=== PATIENT | female | born 1965 | race Caucasian/White ===

== ENCOUNTER → 2018-04-04 12:45 | Outpatient (CLI) | payer BC, SELFPAY ==
--- NOTE | 2018-04-04 12:52 | VDLE_ITS ---
Reason For Study: EDEMA RIGHT LEFT CFV is compressible, spontaneous, phasic, CFV is compressible, spontaneous, phasic, competent and demonstrates normal competent, and demonstrates normal augmentation. augmentation. FV is compressible, spontaneous, phasic, FV is compressible, spontaneous, phasic, competent and demonstrates normal competent and demonstrates normal augmentation. augmentation. POP V is compressible, spontaneous, phasic, POP V is compressible, spontaneous, phasic, competent and demonstrates normal competent and demonstrates normal augmentation. augmentation. T/P Trunk is compressible. T/P Trunk is compressible. PTV is compressible. PTV is compressible. RT PerV is compressible. LT PerV is compressible. SFJ is competent. SFJ is competent. GSV is competent. GSV is competent. SSV is competent. SSV is competent. Procedure NON vascular structure noted in the pop Exam performed in department. fossa space measuring 5.59 cm x 2.75 cm. The exam was diagnostic. A preliminary report was called and/or faxed to Natalia Mckeon UPTWISTER TENDER @ [phone] @ 2:15 pm. IMAGE #[id number] is LT SSV. Interpretation Summary Deep veins of the lower extremities are bilaterally patent and compressible segmentally. There is no evidence of deep vein thrombosis on either side. Valvular competence appears intact within the proximal deep venous systems bilaterally. The greater saphenous veins appear bilaterally patent and compressible segmentally. Sapheno-femoral junctions are bilaterally competent . Valvular competence appears to be intact segmentally within the greater saphenous veins bilaterally. Small saphenous veins are patent and competent bilaterally. A non-vascular, hypoechoic structure is noted in the left popliteal space, measuring 5.59 cm x 2.75 cm. This probably represents a popliteal cyst. Clinical correlation is advised. Ordering Physician: NATALIA MCKEON Referring Physician: Natalia Mckeon Performed By: Kimmie Perez, RDCS, RVT
--- NOTE | 2018-04-05 13:48 | LEAS_ITS ---
Arterial Study - Arterial Study Arterial Study: This is a 53 year-old female with suspected peripheral arterial occlusive disease. She is brought to the noninvasive vascular laboratory at this time for the purpose of bilateral noninvasive lower extremity arterial assessment. Doppler signal assessment was used to evaluate the pulses at ankle level bilaterally. The posterior tibial and dorsalis pedis pulses were triphasic bilaterally. Segmental limb pressures were obtained at ankle level bilaterally. The right ankle pressure, as determined by posterior tibial pulse, was measured at 196 mmHg. The right ankle pressure, as determined by dorsalis pedis pulse, was measured at 189 mmHg. The left ankle pressure, as determined by posterior tibial pulse, was measured at 196 mmHg. The left ankle pressure, as determined by dorsalis pedis pulse, was measured at 177 mmHg. Pulse-volume recordings were obtained bilaterally and segmentally. Waveform amplitudes appeared to be satisfactory at all levels bilaterally, including low thigh, calf, ankle, and digital levels. Resting ankle-brachial indices were calculated bilaterally. The resting right ankle-brachial index was calculated to be 1.26. The resting left ankle- brachial index was calculated to be 1.26. Impression: Based upon the findings of this resting noninvasive lower extremity arterial study, there is no evidence of significant atherosclerotic peripheral arterial occlusive disease in the lower extremities bilaterally. Triphasic waveforms were noted at ankle level bilaterally. Resting ankle-brachial indices were bilaterally normal. In summary, this represents a normal resting noninvasive lower extremity arterial study bilaterally.
== END ==
PROVIDERS: Family Provider Nurse Practitioner; PCP Nurse Practitioner; Visit Provider Nurse Practitioner
DX: R60.0 Localized edema (principal); I73.9 Peripheral vascular disease, unspecified; I83.90 Asymptomatic varicose veins of unspecified lower extremity
CPT/HCPCS: 93923; 93970

== ENCOUNTER → 2018-09-10 20:35 | Outpatient (CLI) | payer BC, SELFPAY ==
[2018-09-10 19:28] VITALS: BMI 33.1
[2018-09-10 20:57] LABS: Absolute Lymphocyte Count 3.79 X10^3/ul (0.83-4.51); Absolute Neutrophil Count 3.3 X10^3/uL (2.0-7.7); Basophil# 0.04 X10^3/uL; Basophil% 0.5 % (0-1); Eosinophil# 0.53 X10^3/uL; Eosinophils% 6.3 % (0-5); Hematocrit 41.5 % (37-47); Lymphocyte # 3.79 X10^3/ul (4.0); Lymphocyte % 44.9 % (19-41); Mean Corp Hgb Conc 33.7 g/gl (32-36); Mean Corpuscular Hgb 31.1 pg (27.0-32.0); Mean Corpuscular Volume 92.2 fL (81-99); Mean Platelet Vol. 10.4 fl (6.2-12.0); Monocyte% 9.5 % (0-10); Neutrophil # 3.28 X10^3/uL (2.7-7.7); Neutrophil % 38.7 % (47-70); POSITIVE COUNT NO; POSITIVE DIFFERENTIAL NO; POSITIVE MORPHOLOGY NO; Platelet Count 240 K/mm3 (150-450); RBC Distribution Width CV 12.6 % (11.6-14.6); RBC Distribution Width SD 41.9 fl (35.1-43.9); White Blood Count 8.5 K/mm3 (4.4-11.0)
[2018-09-10 20:59] LABS: ALB/GLOB Ratio 0.9 RATIO (0.9-2.4); AST(SGOT) 36 U/L (15-37); Alanine Aminotransfer ALT/SGPT 55 U/L (13-56); Albumin, Serum 3.5 g/dL (3.2-5.0); Alkaline Phosphatase 88 U/L (45-117); Anion Gap 6 (5-15); BUN 18 mg/dL (7-18); BUN/Creat Ratio 26.9 RATIO (10-20); Calcium,Total 8.8 mg/dL (8.5-10.1); Chloride 106 mmol/L (98-107); Cholesterol 139 mg/dL (200); Creatinine, Serum 0.67 mg/dL (0.55-1.02); EST Glomerular Filtration Rate 98 mL/min (>60); Est Glom Filt Rate - Afr Amer 119 mL/min (>60); Globulin 4.1 g/dL (2.2-4.2); Glucose 102 mg/dL (74-106); High Density Lipoprotein 45 mg/dL; Protein, Total 7.6 g/dL (6.4-8.2); Sodium Level 140 mmol/L (136-145); Triglycerides 78 mg/dL; Very Low Density Lipoprotein 16 mg/dL (5-40)
== END ==
PROVIDERS: Family Provider Nurse Practitioner; PCP Nurse Practitioner; Referring Provider Nurse Practitioner; Visit Provider Nurse Practitioner
DX: Z00.00 Encounter for general adult medical examination without abnormal findings (principal)
CPT/HCPCS: 80053; 80061; 85025

== ENCOUNTER → 2019-08-08 00:18 | Outpatient (CLI) | payer BC, SELFPAY ==
[2019-08-07 21:16] VITALS: BMI 35.6
[2019-08-08 00:33] LABS: Absolute Lymphocyte Count 4.32 X10^3/uL (0.83-4.51); Absolute Neutrophil Count 4.2 X10^3/uL (2.0-7.7); Basophil# 0.09 X10^3/uL; Basophil% 0.9 % (0-1); Eosinophil# 0.44 X10^3/uL; Eosinophils% 4.5 % (0-5); Hematocrit 40.7 % (37-47); Hemoglobin 13.7 g/dL (12.0-15.0); Lymphocyte # 4.32 X10^3/ul (4.0); Lymphocyte % 44.3 % (19-41); Mean Corp Hgb Conc 33.7 g/dL (32-36); Mean Corpuscular Volume 95.1 fL (81-99); Mean Platelet Vol. 10.7 fl (6.2-12.0); Monocyte# 0.69 X10^3/uL; Monocyte% 7.1 % (0-10); NRBC Flagged by Analyzer 0 % (0-5); Neutrophil # 4.18 X10^3/uL (2.7-7.7); Neutrophil % 42.9 % (47-70); Platelet Count 252 K/mm3 (150-450); RBC Distribution Width CV 12.6 % (11.6-14.6); RBC Distribution Width SD 43.8 fl (35.1-43.9); Red Blood Count 4.28 M/mm3 (4.2-5.4); White Blood Count 9.8 K/mm3 (4.4-11.0)
[2019-08-08 00:50] LABS: AST(SGOT) 62 U/L (15-37); Alanine Aminotransfer ALT/SGPT 74 U/L (13-56); Albumin, Serum 3.8 g/dL (3.2-5.0); Alkaline Phosphatase 88 U/L (45-117); Anion Gap 6 (5-15); BUN 11 mg/dL (7-18); BUN/Creat Ratio 16.2 RATIO (10-20); Chloride 106 mmol/L (98-107); Cholesterol 173 mg/dL (200); Creatinine, Serum 0.68 mg/dL (0.55-1.02); EST Glomerular Filtration Rate 96 mL/min (>60); Est Glom Filt Rate - Afr Amer 116 mL/min (>60); Globulin 3.9 g/dL (2.2-4.2); Glucose 97 mg/dL (74-106); High Density Lipoprotein 42 mg/dL; Potassium 4.3 mmol/L (3.5-5.1); Protein, Total 7.7 g/dL (6.4-8.2); Sodium Level 140 mmol/L (136-145); Triglycerides 97 mg/dL; Very Low Density Lipoprotein 19 mg/dL (5-40)
== END ==
LOC: OLS.AHF 00:19 → LABSPEC 10:43
PROVIDERS: Family Provider Nurse Practitioner; PCP Nurse Practitioner; Referring Provider Nurse Practitioner; Visit Provider Nurse Practitioner
DX: Z00.00 Encounter for general adult medical examination without abnormal findings (principal)
CPT/HCPCS: 80053; 80061; 85025

== ENCOUNTER → 2020-01-07 10:43 | Outpatient (CLI) | payer BC, SELFPAY ==
[2019-11-16 19:33] VITALS: BMI 35.6
--- NOTE | 2020-01-07 10:45 | VDLE_ITS ---
Reason For Study: PAIN RIGHT CFV is compressible, spontaneous, phasic, competent and demonstrates normal augmentation. FV is compressible, spontaneous, phasic, competent and demonstrates normal augmentation. POP V is compressible, spontaneous, phasic, competent and demonstrates normal augmentation. T/P Trunk is compressible. PTV is compressible. RT PerV is compressible. GSV is absent. Procedure Exam performed in department. The exam was diagnostic. A preliminary report was called and/or faxed to Nika Mays. Interpretation Summary Deep veins of the right lower extremity are patent and compressible segmentally. There is no evidence of right lower extremity deep vein thrombosis. Valvular competence appears intact within the proximal deep venous system on the right . The right great saphenous vein is absent. Ordering Physician: Nika Mays Performed By: Arias Adames RVT
[2020-01-07 11:52] LABS: D-Dimer Quantitative (DVT/PE) 0.33 FEU/ug/m (0.27-0.49)
[2020-01-07 12:03] LABS: ALB/GLOB Ratio 0.9 RATIO (0.9-2.4); AST(SGOT) 97 U/L (15-37); Alanine Aminotransfer ALT/SGPT 97 U/L (13-56); Albumin, Serum 3.6 g/dL (3.2-5.0); Alkaline Phosphatase 75 U/L (45-117); Anion Gap 6 (5-15); BUN 9 mg/dL (7-18); BUN/Creat Ratio 13.6 RATIO (10-20); Calcium,Total 8.8 mg/dL (8.5-10.1); Chloride 106 mmol/L (98-107); Creatinine, Serum 0.66 mg/dL (0.55-1.02); EST Glomerular Filtration Rate 99 mL/min (>60); Est Glom Filt Rate - Afr Amer 120 mL/min (>60); Globulin 3.8 g/dL (2.2-4.2); Glucose 108 mg/dL (74-106); Magnesium 2.2 mg/dL (1.6-2.6); Protein, Total 7.4 g/dL (6.4-8.2); Sodium Level 139 mmol/L (136-145)
== END ==
PROVIDERS: PCP Nurse Practitioner; Referring Provider Nurse Practitioner; Visit Provider Nurse Practitioner
DX: I82.401 Acute embolism and thrombosis of unspecified deep veins of right lower extremity (principal); R25.2 Cramp and spasm; R52 Pain, unspecified
CPT/HCPCS: 36415; 80053; 83735; 85379; 93971

== ENCOUNTER → 2020-08-08 21:18 | Outpatient (CLI) | payer BC, SELFPAY ==
[2020-08-08 19:35] VITALS: BMI 36.4
[2020-08-08 21:28] LABS: Absolute Lymphocyte Count 4.59 X10^3/uL (0.83-4.51); Absolute Neutrophil Count 4.8 X10^3/uL (2.0-7.7); Basophil# 0.08 X10^3/uL; Basophil% 0.8 % (0-1); Eosinophil# 0.25 X10^3/uL; Eosinophils% 2.4 % (0-5); Hematocrit 42.6 % (37-47); Lymphocyte # 4.59 X10^3/ul (4.0); Lymphocyte % 43.3 % (19-41); Mean Corp Hgb Conc 32.9 g/dL (32-36); Mean Corpuscular Hgb 31.4 pg (27.0-32.0); Mean Corpuscular Volume 95.5 fL (81-99); Monocyte# 0.89 X10^3/uL; Monocyte% 8.4 % (0-10); NRBC Flagged by Analyzer 0 % (0-5); Neutrophil # 4.78 X10^3/uL (2.7-7.7); Neutrophil % 44.9 % (47-70); Platelet Count 263 K/mm3 (150-450); RBC Distribution Width CV 12.5 % (11.6-14.6); RBC Distribution Width SD 44.1 fl (35.1-43.9); Red Blood Count 4.46 M/mm3 (4.2-5.4); White Blood Count 10.6 K/mm3 (4.4-11.0)
[2020-08-08 21:42] LABS: ALB/GLOB Ratio 0.9 RATIO (0.9-2.4); AST(SGOT) 52 U/L (15-37); Alanine Aminotransfer ALT/SGPT 86 U/L (13-56); Albumin, Serum 3.6 g/dL (3.2-5.0); Alkaline Phosphatase 77 U/L (45-117); Anion Gap 5 (5-15); BUN 9 mg/dL (7-18); BUN/Creat Ratio 9.6 RATIO (10-20); Chloride 106 mmol/L (98-107); Cholesterol 187 mg/dL (200); Creatinine, Serum 0.94 mg/dL (0.55-1.02); EST Glomerular Filtration Rate 66 mL/min (>60); Est Glom Filt Rate - Afr Amer 80 mL/min (>60); Glucose 131 mg/dL (74-106); High Density Lipoprotein 40 mg/dL; Protein, Total 7.6 g/dL (6.4-8.2); Sodium Level 140 mmol/L (136-145); Triglycerides 214 mg/dL; Very Low Density Lipoprotein 43 mg/dL (5-40)
== END ==
PROVIDERS: PCP Nurse Practitioner; Referring Provider Nurse Practitioner; Visit Provider Nurse Practitioner
DX: Z00.00 Encounter for general adult medical examination without abnormal findings (principal)
CPT/HCPCS: 80053; 80061; 85025

== ENCOUNTER → 2020-08-09 09:13 | Outpatient (CLI) | payer BC, SELFPAY ==
[2020-08-08 19:35] VITALS: BMI 36.4
--- NOTE | 2020-08-09 09:15 | RAD_ITS ---
STUDY: X-RAY - LEFT KNEE REASON FOR EXAM: Female, 55 years old. FELT POP UNDER PATELLA, PAIN MEDIALLY AND LATERALLY YESTERDAY, PAIN ALL AROUND TODAY TECHNIQUE: 4 view(s) of the knee. COMPARISON: None. FINDINGS: Normal visualized distal femur. Normal visualized proximal tibia and fibula. Normal proximal tibiofibular articulation. There is no demonstrated fracture. Normal medial femorotibial compartment. Normal lateral femorotibial compartment. There is mild degenerative arthrosis of the patellofemoral articulation. The soft tissue structures are unremarkable. RAD/Knee 4 or More Views IMPRESSION: Patellofemoral degenerative change. No fracture seen. Electronically Signed: Allan Villalobos MD at 23:54 EST , Service support ,
== END ==
PROVIDERS: PCP Nurse Practitioner; Referring Provider Nurse Practitioner; Visit Provider Nurse Practitioner
DX: M25.562 Pain in left knee (principal)
CPT/HCPCS: 73564

== ENCOUNTER → 2020-08-11 13:08 | Outpatient (CLI) | payer BC, SELFPAY ==
[2020-08-11 13:38] LABS: Pathologist Comment May follow
[2020-08-11 14:06] LABS: Synovial Fld Mononuclear WBC % 86.1 %; Synovial Fld Polynuclear WBC # 0.151 10^3/uL; Synovial Fld Polynuclear WBC % 13.9 %
[2020-08-11 14:14] LABS: AUTO B FLUID DILUENT BKGD CT WBC <0.1 RBC <0.01 (W<.1,R<.01)
[2020-08-11 14:15] LABS: Appearance /Synovial Fluid Sl Cl (CLEAR); Color / Synovial Fluid Yellow (Pale Yellow); Source / Synovial Fluid LEFT KNEE; Source- Body Fluid SYNOVIAL
[2020-08-11 14:44] LABS: Lymph 19 %; Monocyte /Synovial Fluid 67 %; Neutrophil 14 % (0-25)
[2020-08-11 14:45] LABS: Body Fluid QC Type(s) BF1Q,BF2Q; RBC /Synovial Fluid 12 /mm3 (0)
[2020-08-12 13:18] LABS: Pathologist Review Reviewed
[2020-08-15 16:42] LABS: GLUCOSE, SYNOVIAL FLUID 177 mg/dL (.)
[2020-08-15 16:45] LABS: PROTEIN, SYNOVIAL FLUID 3.8 g/dL (.)
== END ==
PROVIDERS: PCP Nurse Practitioner; Referring Provider Orthopaedic Surgery; Visit Provider Orthopaedic Surgery
DX: S83.207A Unspecified tear of unspecified meniscus, current injury, left knee, initial encounter (principal); S89.92XA Unspecified injury of left lower leg, initial encounter; X58.XXXA Exposure to other specified factors, initial encounter; Y93.9 Activity, unspecified; Y92.9 Unspecified place or not applicable; Y99.9 Unspecified external cause status
CPT/HCPCS: 82945; 84157; 87070; 87075; 87205; 89050; 89051; 89060

== ENCOUNTER → 2020-08-19 16:38 | Outpatient (CLI) | payer BC, SELFPAY ==
[2020-08-08 19:35] VITALS: BMI 36.4
--- NOTE | 2020-08-19 16:45 | MRI_ITS ---
STUDY: MRI LEFT KNEE REASON FOR EXAM: Female, 55 years old. LEFT knee pain x 2 weeks, NKI TECHNIQUE: Standardized fat and water weighted pulse sequences were obtained in all 3 orthogonal planes. COMPARISON: None. FINDINGS: Normal medial meniscus. There is diffuse, less than 50% thickness articular cartilage loss of the medial femorotibial compartment. Normal medial femoral condyle and tibial plateau. A 5.52 cm degenerated ganglion cyst is present in the posterior aspect of the joint just above the medial femoral condyle. No visualized acute fracture or acute marrow edema. Normal medial collateral ligamentous complex (MCL). Normal distal semimembranosus, gracilis and semitendinosus tendons. Normal lateral meniscus. There is diffuse, greater than 50% thickness articular cartilage loss of the lateral femorotibial compartment. Small regions of full-thickness cartilage loss are present on both sides of the lateral compartment. Normal lateral femoral condyle and tibial plateau. Normal proximal tibiofibular articulation. Normal lateral collateral (fibular) ligament. Normal popliteus tendon. Normal biceps femoris tendon. There is edema with swelling and loss of definition of the of the ACL fascicles, producing a celery stick appearance, with preservation of the continuity of fibers, consistent with mucoid cystic degeneration. Normal posterior cruciate ligament (PCL). Normal congruent patellofemoral articulation. There is diffuse, less than 50% thickness articular cartilage loss of the patellofemoral compartment. Mild subchondral cystic changes are present in the midline of the patella. Normal medial and lateral patellar retinaculum. Normal quadriceps tendon. Normal patellar tendon. Normal Hoffa''s fat pad. A small joint effusion is present. The soft tissues are unremarkable. The otherwise visualized osseous structures are unremarkable. MRI/Lower Ext Joint Only (Routine) IMPRESSION: 1. Small regions of full-thickness cartilage loss are present on both sides of the lateral compartment. 2. A 5.52 cm degenerated ganglion cyst is present in the posterior aspect of the joint just above the medial femoral condyle. 3. Subchondral cystic changes of the patella 4. No visualized acute fracture or acute marrow edema. Electronically Signed: Bebeto Turner MD at 18:56 EST , Service support ,
== END ==
PROVIDERS: PCP Nurse Practitioner; Referring Provider Orthopaedic Surgery; Visit Provider Orthopaedic Surgery
DX: S83.207A Unspecified tear of unspecified meniscus, current injury, left knee, initial encounter (principal); S89.92XA Unspecified injury of left lower leg, initial encounter; X58.XXXA Exposure to other specified factors, initial encounter; Y93.9 Activity, unspecified; Y92.9 Unspecified place or not applicable; Y99.9 Unspecified external cause status
CPT/HCPCS: 73721

== ENCOUNTER → 2020-09-15 11:12 | Outpatient (CLI) | payer BC, SELFPAY ==
--- NOTE | 2020-09-15 11:15 | VDLE_ITS ---
Reason For Study: swelling Procedure LEFT This is a venous duplex using B-mode, color CFV is compressible, spontaneous, phasic, flow and spectral Doppler. competent, and demonstrates normal Exam performed in department. augmentation. The exam was abbreviated due to the COVID 19 FV is compressible, spontaneous, phasic, protocol. competent and demonstrates normal The exam was diagnostic. augmentation. A preliminary report was called and/or faxed POP V is compressible, spontaneous, phasic, to Dr. Roman. competent and demonstrates normal augmentation. T/P Trunk is compressible. PTV is compressible. LT PerV is compressible. GSV in the thigh is absent. Hypoechoic area behind the knee measuring 3.02 x 5.31 cm. Area is nonvascular. Interpretation Summary There is no evidence of left lower extremity deep vein thrombosis. Surgically absent left great saphenous vein of the thigh Nonvascular hypoechoic left popliteal space structure measuring 3.02 x 5.31 cm. Location would be consistent with a Monroy's cyst. Clinical correlation would be appropriate. COVID-19 protocol utilized. Ordering Physician: Jennifer Roman Performed By: Arias Adames RVT
[2020-09-15 14:20] LABS: Body Fluid QC Type(s) BF1Q; Source- Body Fluid SYNOVIAL
[2020-09-16 12:38] LABS: Pathologist Review Reviewed
== END ==
PROVIDERS: PCP Nurse Practitioner; Referring Provider Orthopaedic Surgery; Visit Provider Orthopaedic Surgery
DX: M79.89 Other specified soft tissue disorders (principal); M17.12 Unilateral primary osteoarthritis, left knee; M25.462 Effusion, left knee
CPT/HCPCS: 89060; 93971

== ENCOUNTER 2020-11-16 05:54 | Day surgery (SDC) | payer BC, SELFPAY ==
[2020-11-16] VITALS (10 sets, daily range): BP systolic 128–169; BP diastolic 71–115; PULSE 59–84; RESP 12–20; TEMP 36.3–36.7; O2SAT 93–100; BMI 35.2
--- NOTE | 2020-11-16 05:14 | HP_ITS ---
I have re-examined the patient. There are no clinical changes since date of exam. Intake Intake Visit Reasons: LEFT KNEE Allergies No Known Allergies Allergy (Verified 09/10/18 20:50) [facility] Medical History (Updated 11/16/19 @ 19:29 by Nika Mays NP, DISTRIBUTED GENERATION PROJECT MANAGER-C) HYPERTENSION (Acute) Varicose vein of leg (Acute) Chronic back pain (Chronic) Surgical History S/P sclerotherapy of varicose veins (Acute) varicose ablation bilat lower legs (Acute) Family History Sister Heart disease Social History (Updated 10/20/20 @ 13:[address] Jennifer Roman DO) Smoking Status: Former smoker quit date: 06/06/18 second hand exposure: Yes alcohol intake: current substance use type: does not use HPI LEFT KNEE: Surgical H&P: Yes Details: Parts of this documentation were recorded by a scribe, this documentation accurately reflects the service provided and the decisions made by me, Dr. Jennifer Roman DO 10/18/20 1300. JACOBY MOYA is a 55 year old F here today for F/U on left knee. Patient left knee is swollen today. She continues to have knee pain and difficulty walking. She states that she wishes to discuss left knee aspiration along with further discussing the left knee scope for meniscectomy. She continues to have popping and clicking of the knee that is painful. Denies numbness, tingling or other associated symptoms. ROS Musc Reports joint pain, Reports joint swelling, Reports limited joint movement, Denies numbness, Denies radiating pain into limb, Denies tingling Skin/Breast Denies redness, Denies lesions, Denies itching, Denies rash, Denies skin swelling Neuro No numbness, No tingling Ortho Exam Left Knee Homans Sign: No 1+: Effusion Examination: Yes med jt line tenderness, Yes Pain with flexion, Yes Madiha's Test Quad Atrophy: Yes Stability: NML: Anterior Drawer, NML: Ritesh, NML: Posterior Drawer, NML: Valgus 0, NML: Valgus 30, NML: Varus 0, NML: Varus 30, NML: Dial 90, NML: Dial 30 Patella Grind: Yes Office Procedures Ortho Aspiration Procedure Detail Procedure performed by: Jennifer Roman Injection Site: No Medication Given: No Ortho Injections/Aspirations Yes Knee Left Details: Obtained consent for aspiration. Under sterile conditions, aspirated 35cc clear synovial fluid, some of the fluid was bloody from the patients left knee. The patient tolerated the aspiration well without any noted complications. Patient should call our office if redness develops, pain worsens or if they have any concerns. Assessment & Plan Problems 1. Tear of medial meniscus of left knee, current, unspecified tear type, subsequent encounter S83.242D 2. Primary osteoarthritis of left knee M17.12 Plan Patient educated that she does have fluid of the knee again and we can aspirate the knee again but it is too soon for an injection. Patient wishes to proceed with aspiration today. Obtained consent for aspiration. Under sterile conditions, aspirated 35cc from the patients left knee. The patient tolerated the aspiration well without any noted complications. Patient should call our office if redness develops, pain worsens or if they have any concerns. Patient educated that her next treatment option would be a left knee scope for meniscectomy vs repair but she can still have continued pain and swelling after surgery d/t the OA of the knee. Reviewed the pre-operative plans with the patient. Risks and benefits of the procedure were fully explained, including but not limited to infection, neurovascular injury, continued pain, arthritis, stiffness, need for further surgery, re-injury, DVT, PE, general risks of anesthesia, and loss of limb or life. The patient understands all the risks and does wish to proceed with written consent for left knee arthroscopy medial and lateral meniscectomy vs repair, repair/surgery as indicated. Follow up 2 weeks post op or sooner if pain, swelling, numbness or associated symptoms, or concerns develop. All questions answered. Patient in agreement of plan. Orders Orders: Ortho Aspiration 10/18/20 M17.12, S83.242D Coding Level of Care Code Off vis,est,level 4 Diagnoses Tear of medial meniscus of left knee, current, unspecified tear type, subsequent encounter S83.242D ??Encounter type: subsequent encounter ??Meniscus tear of knee type: unspecified type Primary osteoarthritis of left knee M17.12 Additional Codes technical support specialist.knee () COVID (Procedure Consent) Procedure Criteria Procedure Criteria: Yes Elective
[2020-11-16] MEDS: Lactated Ringers 1,000 ML 100 ML IV ×2 (06:32→09:12)
[2020-11-16] MEDS: Cefazolin 2 GM in 0.9% Normal Saline 100 ML IV (07:22)
--- NOTE | 2020-11-16 07:30 | SYN_PTH ---
PATIENT: JACOBY MOYA LOC: [facility] [place] U#:[id number] AGE/SX: 55/F ROOM: RE11/16/[address]: Dr. Jennifer Roman DO : 1965 BED: DIS: 11/16/2020 SPEC #: [id number] RECD: 11/16/20 09:13 STATUS: REJI ASHUTOSH #: [id number] YANETH: 11/16/20 07:[address]: Jennifer Roman DEPT: SURGICAL PATHOLOGY RECD BY: Kristy Wood ENTERED: 11/16/20 14:52 SP TYPE: SYNOVIUM OTHR DR: Nika Mays, BRAND ENGINEER-C Tissues: Synovial tissue of joint, NOS Procedures: Surgery Specimen Level IV HEADER OPERATION: Arthroscopy, knee, medial and lateral meniscectomy, synovial PRE-OP DIAGNOSIS: Tear of medial meniscus of left knee; primary osteoarthritis of left knee TISSUE SUBMITTED: Tissue, left knee synovial MICROSCOPIC DIAGNOSIS Left knee synovial tissue: Fragments of moderately reactive synovial tissue with mild chronic inflammation. KIMO:alize 11/17/20 MICROSCOPIC DESCRIPTION Slides are reviewed. GROSS DESCRIPTION Received in fixative is one container labeled with the patient's name and designated tissue, left knee synovium. The specimen consists of multiple irregular fragments of light santiago-white soft tissue measuring in aggregate 2 x 1 x 0.1 cm. The specimen is totally submitted in one cassette. / AM:alize 11/16/20 TC:5 [facility]: [id number]
[2020-11-16] MEDS: Epinephrine (1 mg/ml) 1 MG/ML VIAL (08:00)
[2020-11-16] MEDS: Bupivacaine Mpf 0.5% 30 ML VIAL (08:07)
[2020-11-16] MEDS: Triamcinolone Acetonide 40 MG/ML Vial (08:16)
[2020-11-16] MEDS: Mupirocin Ointment 22gm Tube 1 APPLIC (08:16)
--- NOTE | 2020-11-16 08:33 | DCINST_ITS ---
Discharge Diet: No Restrictions - wbat operative limb, elevate toes above nose, ice, ankle pumps, follow up in 2 weeks, remove dressing and put bandaids on incisions pod5 and may get incision wet at that time, call with concerns Discharge Activity: May Not Drive May shower in (days): 1 Ice area for (Minutes): 20 - Every hour while awake. Weight Bearing Status: Weight bearing as tolerated Keep extremity elevated above heart level: Operative Extremity Call your doctor if your incision/area has: Continuous Slow Oozing, Sudden Increased Bleeding, Increased Pain/ Swelling, Increased Redness, Foul Smelling Discharge Call your doctor if you observe: Fever of 101 or Higher, Coldness, Increased Pain, Numbness or Tingling, Change in Color, Calf discomfort Allergies/Adverse Reactions: Allergies No Known Allergies Allergy (Verified 11/16/20 06:13) Medications to take at Discharge albuterol sulfate 90 mcg/actuation aerosol inhaler 2 puff INHALATION Q4H PRN #8.5 g 08/08/20 tramadol 50 mg tablet 50 mg PO Q4H PRN 7 Days #42 tab 08/08/20 Acetaminophen [Arthritis Pain Relief] 650 mg PO Q12H PRN PRN 11/09/20 Baclofen [Lioresal] 10 mg PO TID PRN 11/09/20 Ibuprofen [Motrin] 800 mg PO Q8 11/09/20 Aspirin 325 mg PO Q12H 30 Days #60 tab 11/16/20 Oxycodone HCl/Acetaminophen [Percocet 5/325] 1 - 2 tab PO Q6H PRN PRN 5 Days #28 tab 11/16/20 The following prescriptions were given: Aspirin 325 mg PO Q12H 30 Days #60 tab Transmission Status: Pending to [facility] Oxycodone HCl/Acetaminophen [Percocet 5/325] 1 - 2 tab PO Q6H PRN PRN 5 Days #28 tab PRN Reason: Pain Transmission Status: Sent to [facility] Primary Care Physician: Nika Mays NP, PRODUCT TECHNOLOGY SCIENTIST-C [Primary Care Provider] - Test Results: Test results from this visit will be discussed in further detail at your follow- up appointment, if applicable. Please Follow Up With: Jennifer Roman, DO - [phone]
--- NOTE | 2020-11-16 08:34 | PCM.OPRPT ---
Report of Operation Date of Procedure: 11/16/20 Pre-Operative Diagnosis: left knee med and lateral men tear, oa, synovitis Post-Operative Diagnosis: same Surgery/Procedure Performed:: salk, pmm, plm, synovial biopsy, ext synovectomy, med and lat meniscectomies, pat and lat fem condyle chondroplasty medical laboratory manager: Darren Solano Anesthesiologist: Az Syed Specimen's removed: parapatella synovitis Estimated Blood Loss (mL): min Fluids Replaced: 800cc Description of Procedure: Preop note Patient is a 55-year-old female with continued left knee pain after a twisting injury to her left knee. Patient failed conservative treatment MRI confirms medial lateral meniscus tears as well as some arthritis of the lateral joint line. Did discuss risk benefits and alternatives surgery. Risk include but not limited to blood loss, blood clot, infection, neurovascular, failure procedure, loss of life and loss of limb. We discussed risk for increased arthritis due to the fact that she has pre-existing arthritis with meniscus tear. All questions answered patient agreement of plan. Patient will proceed with left knee arthroscopy repair as indicated. We discussed the current risk associated COVID-19. While it is understood that there is a community spread of COVID 19 the risk of doris COVID-19 while at [facility] is very low, however, the risk cannot be completely mitigated because of the community spread of the disease. We discussed in detail the risk of exposure to and or potential harm posed by the COVID-19 virus with having a surgery/procedure at this time versus the risk of delaying the surgery/procedure. Is not possible to know either the risk of delaying the surgery procedure or chance of getting an infection with perfect accuracy, but a joint decision was made to proceed at this time with a schedule surgery/procedure as indicated on the consent form. Patient was notified that we will need to comply with any screening or testing [facility] wishes to perform or that surgery may be delayed for any positive results. Operative note Patient seen and examined preoperative area. Left knee was marked. Patient brought to the operating placed supine on the operating table. Sign, anesthesia, antibiotics were administered. Left knee was prepped and draped in usual sterile technique with a tourniquet on her upper thigh. All bony prominences well-padded and SCDs placed on her contralateral limb. We marked out our incision for bony landmarks for portal placement. The left leg was elevated exsanguinated tourniquet was raised to a pressure of 250 torr. Timeout was performed. We then used an 11 blade to create a anterolateral portal began our diagnostic arthroscopy. Patellofemoral joint was unremarkable except some fibrillations grade 2 along the inferior pole of the patella. She had extensive synovitis and some erythema of the synovium in the patellofemoral recess. As well as the medial recess and lateral recesses. We then moved to the medial joint line. Created anterior medial portal and direct visualization. We probed the medial meniscus which had a small posterior horn tear the root itself was stable we resected this back with a shaver. We then probed the remaining meniscus which was intact and stable probing. The cartilage was intact. Her ACL was partially torn off and wear the lateral meniscus into inserted on the anterior horn. This was gently debrided with a shaver. We then moved to the lateral joint line after we performed extensive synovectomy. We also took synovium and sent it to pathology for further evaluation. At this point. She had grade 3 and 4 changes of her lateral femoral condyle lateral tibial plateau. She had some loose pieces on the lateral femoral condyle that were gently debrided back with a shaver. She also had a unstable lateral meniscus tear was gently debrided with combination of a basket and shaver. We did reconstruct the meniscus with a probe and it was stable meniscus remaining. We then gently remained removed any other for further synovitis that was again anterior lateral. We lowered the tourniquet and loaded the started the inflow to quite visualize any bleeders we did coagulate any bleeders that we did encounter. The knee was irrigated with copious muscle sterile saline pain. We then injected 8 cc bupivacaine 2 cc Kenalog injection after water was removed the irrigation was moved from the knee. Tourniquet was deflated. Patient tolerated procedure well no complications child recovery room in stable condition. Postoperative Repair as tolerated Pictures in 2 weeks Pharmacy has prescriptions Call with increased pain numbness tingling further issues arise Patient will also start aspirin 325 twice daily because of history of varicosities increases risk of DVT This note was generated with Press-senseation software. It may contain incorrect words, spelling, and punctuation that were not noted in checking the note before signing.
== END 2020-11-16 12:15 | disposition home or self-care (01) ==
LOC: SDC 05:54 → AC 05:54
PROVIDERS: PCP Nurse Practitioner; Referring Provider Orthopaedic Surgery; Visit Provider Orthopaedic Surgery
PROC: (CPT 29882; principal; 2020-11-16 07:10)
DX: S83.242A Other tear of medial meniscus, current injury, left knee, initial encounter (principal); S83.282A Other tear of lateral meniscus, current injury, left knee, initial encounter; M17.12 Unilateral primary osteoarthritis, left knee; Z20.822 Contact with and (suspected) exposure to COVID-19; X50.1XXA Overexertion from prolonged static or awkward postures, initial encounter; Y93.9 Activity, unspecified; Y92.9 Unspecified place or not applicable; Y99.9 Unspecified external cause status; I10 Essential (primary) hypertension; K21.9 Gastro-esophageal reflux disease without esophagitis; M54.9 Dorsalgia, unspecified; G89.29 Other chronic pain; Z87.891 Personal history of nicotine dependence
CPT/HCPCS: 29880; 64447; 87426; 88305; C9803; J7120; J2405

== ENCOUNTER → 2020-12-01 11:00 | Outpatient (CLI) | payer BC, SELFPAY ==
[2020-11-16 06:15] VITALS: BMI 35.2
--- NOTE | 2020-12-01 11:01 | VDLE_ITS ---
Reason For Study: Swelling Procedure LEFT This is a venous duplex using B-mode, color GSV is normal. flow and spectral Doppler. CFV is compressible, spontaneous, phasic, Exam performed in department. competent, and demonstrates normal A preliminary report was called and/or faxed augmentation. to [facility]. FV is compressible, spontaneous, phasic, competent and demonstrates normal augmentation. POP V is compressible, spontaneous, phasic, competent and demonstrates normal augmentation. T/P Trunk is compressible. PTV is compressible. LT PerV is compressible. Interpretation Summary There is no evidence of left lower extremity deep vein thrombosis. Left great saphenous vein appears patent and compressible segmentally. Ordering Physician: Jennifer Roman Referring Physician: Nika Mays Performed By: Elisa Guzman RVT
== END ==
PROVIDERS: PCP Nurse Practitioner; Referring Provider Orthopaedic Surgery; Visit Provider Orthopaedic Surgery
DX: M79.89 Other specified soft tissue disorders (principal); Z47.89 Encounter for other orthopedic aftercare
CPT/HCPCS: 93971

== ENCOUNTER 2020-12-02 05:42 | Day surgery (SDC) | payer BC, SELFPAY ==
[2020-11-16 06:15] VITALS: BMI 35.2
[2020-12-02] VITALS (8 sets, daily range): BP systolic 128–158; BP diastolic 78–113; PULSE 70–83; RESP 16–18; TEMP 36.2–37.1; O2SAT 94–100; BMI 36.6
[2020-12-02] MEDS: Lactated Ringers 1,000 ML 100 ML IV (06:33)
[2020-12-02] MEDS: Cefazolin 2 GM in 0.9% Normal Saline 100 ML IV (07:27)
[2020-12-02] MEDS: Epinephrine (1 mg/ml) 1 MG/ML VIAL (08:00)
[2020-12-02] MEDS: Mupirocin Ointment 22gm Tube 1 APPLIC (08:13)
--- NOTE | 2020-12-02 08:35 | DCINST_ITS ---
Discharge Diet: No Restrictions - wbat right leg, asa 325 bid, elevate/ice/ankle pumps as indicated, follow up in 2 weeks, call with concerns, compression stockings for 7 days Discharge Activity: May Not Drive May shower in (days): 1 Ice area for (Minutes): 20 - Every hour while awake. Weight Bearing Status: Weight bearing as tolerated Keep extremity elevated above heart level: Operative Extremity Call your doctor if your incision/area has: Continuous Slow Oozing, Sudden Increased Bleeding, Increased Pain/ Swelling, Increased Redness, Foul Smelling Discharge Call your doctor if you observe: Fever of 101 or Higher, Coldness, Increased Pain, Numbness or Tingling, Change in Color, Calf discomfort Allergies/Adverse Reactions: Allergies No Known Allergies Allergy (Verified 12/02/20 06:20) Medications to take at Discharge albuterol sulfate 90 mcg/actuation aerosol inhaler 2 puff INHALATION Q4H PRN #8.5 g 08/08/20 tramadol 50 mg tablet 50 mg PO Q4H PRN 7 Days #42 tab 08/08/20 Acetaminophen [Arthritis Pain Relief] 650 mg PO Q12H PRN PRN 11/09/20 Baclofen [Lioresal] 10 mg PO TID PRN 11/09/20 Ibuprofen [Motrin] 800 mg PO Q8 11/09/20 Aspirin 325 mg PO Q12H 30 Days #60 tab 11/16/20 Oxycodone HCl/Acetaminophen [Percocet 5-325 mg Tablet] 1 ea PO PRN PRN 12/01/20 Oxycodone HCl/Acetaminophen [Percocet 5/325] 1 - 2 tab PO Q6H PRN PRN 5 Days #28 tab 12/02/20 The following prescriptions were given: Oxycodone HCl/Acetaminophen [Percocet 5/325] 1 - 2 tab PO Q6H PRN PRN 5 Days #28 tab PRN Reason: Pain Transmission Status: Received by [facility] Primary Care Physician: Nika Mays NP, WELDER FABRICATOR-C [Primary Care Provider] - Test Results: Test results from this visit will be discussed in further detail at your follow- up appointment, if applicable. Please Follow Up With: Jennifer Roman, DO - [phone]
--- NOTE | 2020-12-02 08:35 | PCM.HP.BLA ---
History and Physical I have re-examined the patient. There are no clinical changes since date of exam. Intake Intake Visit Reasons: left knee Is patient in pain?: Yes Allergies No Known Allergies Allergy (Verified 12/01/20 09:05) [facility] Medical History (Updated 11/16/20 @ 08:[address] Jennifer Roman DO) HYPERTENSION (Acute) Varicose vein of leg (Acute) Chronic back pain (Chronic) Surgical History (Updated 11/16/20 @ 08:[address] Jennifer Roman DO) S/P sclerotherapy of varicose veins (Acute) varicose ablation bilat lower legs (Acute) Family History Sister Heart disease Social History (Updated 12/01/20 @ 12:[address] Jennifer Roman DO) Smoking Status: Former smoker quit date: 06/06/18 second hand exposure: Yes alcohol intake: current substance use type: does not use HPI left knee: Surgical H&P: Yes Details: Parts of this documentation were recorded by a scribe, this documentation accurately reflects the service provided and the decisions made by me, Dr. Jennifer Roman DO 12/01/20 0859. JACOBY MOYA is a 55 year old F here today for s/p salk, pmm, plm, synovial biopsy, ext synovectomy, med and lat meniscectomies, pat and lat fem condyle chondroplasty dos 11/16/20. Patient notes that she continues to have a lot of pain. She describes her pain as a sharp shooting pain. She notes that if she is standing she feels like her knee is going to buckle. Patient has increased pain at night. Her pain is over her anterior and lateral knee. She has drainage from her incision. Patient denies any calf pain but muscle spasms into her left calf. She is prone to cramps. Patient denies any fevers or chills. She denies any bracing or assistive walking devices. She has difficulty with ADLs as she has increased pain with knee flexion. Patient is taking pain medications frequently due to her pain. She continues to have drainage from the lateral portal site and this has been on constant drainage for a few days. ROS Musc Reports joint pain, Reports joint swelling, Denies numbness, Denies tingling Skin/Breast Reports system reviewed and no additional complaints, except as docu Neuro Yes system reviewed and no additional complaints, except as docu, No numbness, No tingling Ortho Exam General General: Yes no acute distress Neurologic: Yes alert, Yes oriented x3 Psychologic: Yes reasonable and appropriate Left Knee Date of Surgery: 11/16/20 Skin/Wound: Yes ecchymosis, No erythema, Yes swelling Homans Sign: No 1+: Effusion Knee ROM: Yes ROM-Extension -20 to 0, No ROM-Flexion 0-140 Assessment & Plan Problems 1. Orthopedic aftercare Z47.89 2. Hematoma of left knee region S80.02XA 3. Knee effusion, left M25.462 Plan Patient educated that her knee was very inflamed meaning the synovial lining was inflamed. Patient educated that she does not have any s/sx of infection today. Patient educated that she can have the knee aspiration today to send the fluid out to determine if this is infection or she can have surgery tomorrow to have the knee washed out or she can start and ATB today and if the drainage does not subside then she can have the wash out next week. Patient wishes to proceed with going to the OR tomorrow to have the aspiration in the office and then possibly have the knee washed out. Reviewed the pre-operative plans with the patient. Risks and benefits of the procedure were fully explained, including but not limited to infection, neurovascular injury, continued pain, arthritis, stiffness, need for further surgery, re-injury, DVT, PE, general risks of anesthesia, and loss of limb or life. The patient understands all the risks and does wish to proceed with written consent. We will proceed with Doppler of the left leg today to assure that she doesn't have a blood clot prior to the second surgery. Educated that she may still continue to have pain d/t the cartilage wear in her knee. Follow up 2 weeks post op or sooner if pain, swelling, numbness or associated symptoms, or concerns develop. All questions answered. Patient in agreement of plan. Orders Orders: Venous Duplex US, Unilateral Today M25.462, Z47.89 Coding Level of Care Code Attention Senior Chemical Process Engineer Diagnoses Orthopedic aftercare Z47.89 Hematoma of left knee region S80.02XA Knee effusion, left M25.462
--- NOTE | 2020-12-02 08:36 | OP.PCM_ITS ---
Report of Operation Date of Procedure: 12/02/20 Pre-Operative Diagnosis: left knee postop hematoma/effusion Post-Operative Diagnosis: same Surgery/Procedure Performed:: left knee arthroscopy irrigation/debridement, evacuation of hematoma house painter helper: Darren Solano Type of Anesthesia:: General Anesthesiologist: Az Syed Estimated Blood Loss (mL): min Fluids Replaced: 900cc Description of Procedure: Preop note Patient is a 55-year-old female who is 2 weeks status post left knee arthroscopy extensive synovectomy see chart for further details. Patient came to the office yesterday she was still draining from her anterior lateral portal and has some ecchymosis not ecchymosis but more of a effusion of her knee patient is not keen on having a on having a needle inserted to her knee to see if there is any infection in her knee however the fact that she is still draining she has a looks like a hematoma around the anterior lateral portal and the risk of this developing into an infection we took her back to the OR will be taking her back to the OR tomorrow for irrigation debridement evacuation of hematoma. Risk benefits and alternatives were discussed with patient. Risk include but not limited to blood loss, blood clot, infection, neurovascular, failure procedure, loss of life and loss of limb. Patient is aware like proceed with left knee arthroscopy repair as indicated. Operative note Patient seen and examined preoperative area. Left knee was marked. Patient brought to the operating placed supine the operative table. Signed, anesthesia, antibiotics were administered. Left knee was prepped and draped in usual sterile technique with a tourniquet on her upper thigh. All bony prominences w ell-padded and SCDs placed on her contralateral limb. We used her previous portal placement. Began our diagnostic arthroscopy. Timeout was performed. We then left elevate exsanguinated leg in turn was raised her pressure of 250 torr. We used an 11 blade to create an anterior lateral portal through her previous portal. Please note that prior to that we did try to take fluid off of the left knee through a superior lateral portal. The fluid itself did not appear to be infected and did not look to be loose to the consistent with postop effusion. Begin our diagnostic arthroscopy. The patellofemoral joint showed some hematoma in the superior count of more of a gross count of fibrillated scar tissue that was erythematous around the knee. An anteromedial portal was created. We then debrided back any scar tissue again there was quite extensive amount of extensive but more of the an anterior lateral anteromedial recesses consistent with postop count of hematoma. We probed the medial lateral portal meniscus which were stable and intact and stable probing we saw her previous meniscectomies. We then used a hydro station supervisor to coagulate any bleeders we let the tourniquet down we did the fluid down numerous times to see if there is any bleeding. At this was done and there is no bleeders were then exsanguinated and sorry we then irrigated and the final time to clear out any debris we did also use a shaver throughout the case evacuating of the hematoma. Debrided back any scar tissue as well from the consistent with a postop changes. Again did not appear to be infected. The tourniquet was deflated. Portals were closed with interrupted 4-0 nylon stitches. Sterile dressings were applied. Please note that we did watch after the tourniquet was deflated for quite some time ensure that there was no further bleeding which there was not. Patient taught procedure well no complication transfer recovery room in stable condition. Postoperative Weight-bear as tolerated left leg discussed with pharmacy has prescriptions Dragon disclaimer This note was generated with [employer] dictation software. It may contain incorrect words, spelling, and punctuation that were not noted in checking the note before signing.
[2020-12-02] MEDS: HYDROcodone Bitartrate/Apap 5/325 Tablet PO (09:13)
== END 2020-12-02 10:21 | disposition home or self-care (01) ==
LOC: SDC 05:43 → AC 05:43
PROVIDERS: PCP Nurse Practitioner; Referring Provider Orthopaedic Surgery; Visit Provider Orthopaedic Surgery
PROC: (CPT 29870; principal; 2020-12-02 07:10)
DX: M96.840 Postprocedural hematoma of a musculoskeletal structure following a musculoskeletal system procedure (principal); M25.462 Effusion, left knee; M62.838 Other muscle spasm; Y83.8 Other surgical procedures as the cause of abnormal reaction of the patient, or of later complication, without mention of misadventure at the time of the procedure; Z20.822 Contact with and (suspected) exposure to COVID-19; I10 Essential (primary) hypertension; G89.29 Other chronic pain; M54.9 Dorsalgia, unspecified; K21.9 Gastro-esophageal reflux disease without esophagitis; Z79.82 Long term (current) use of aspirin; Z87.891 Personal history of nicotine dependence; Z79.899 Other long term (current) drug therapy
CPT/HCPCS: 01400; 29871; 87070; 87075; 87205; 87426; C9803; J7120; J2405

== ENCOUNTER → 2021-01-17 | Outpatient (CLI) | payer BC, SELFPAY ==
[2021-01-17 09:45] LABS: Pathologist Comment May follow
[2021-01-17 10:17] LABS: RBC /Synovial Fluid 0.035 10^6/uL (0); Synovial Fld Mononuclear WBC % 78.9 %; Synovial Fld Polynuclear WBC % 21.1 %
[2021-01-17 10:35] LABS: AUTO B FLUID DILUENT BKGD CT WBC <0.1 RBC <0.01 (W<.1,R<.01); CRYSTALS, BODY FLUID See PATH REV; Source- Body Fluid SYNOVIAL
[2021-01-17 10:37] LABS: Appearance /Synovial Fluid Cloudy (CLEAR); Color / Synovial Fluid Bloody (Pale Yellow); Source / Synovial Fluid NOT INDICATED; Viscosity / Synovial Fluid Liquid (HIGH)
[2021-01-17 10:39] LABS: Body Fluid QC Type(s) BF1Q,BF2Q
[2021-01-17 11:35] LABS: Lymph 33 %; Monocyte /Synovial Fluid 37 %; Neutrophil 27 % (0-25); Other Cell /Synovial Fluid 3 %; Synovial Fld Mononuclear WBC # 0.225 10^3/ul
[2021-01-17 12:59] LABS: Pathologist Review Reviewed
[2021-01-18 13:36] LABS: GLUCOSE, SYNOVIAL FLUID 164 mg/dL (.)
[2021-01-18 13:43] LABS: PROTEIN, SYNOVIAL FLUID 4.1 g/dL (.)
== END | disposition home or self-care (01) ==
LOC: LABSPEC 09:42
PROVIDERS: PCP Nurse Practitioner; Visit Provider Orthopaedic Surgery
DX: M17.12 Unilateral primary osteoarthritis, left knee (principal); Z47.89 Encounter for other orthopedic aftercare
CPT/HCPCS: 82945; 84157; 87070; 87075; 87205; 89050; 89051; 89060

== ENCOUNTER → 2021-05-16 | Outpatient (CLI) | payer BC, SELFPAY ==
[2021-05-16 18:23] VITALS: BMI 36.0
[2021-05-16 22:23] LABS: Absolute Neutrophil Count 5.9 X10^3/uL (2.0-7.7); Basophil# 0.09 X10^3/uL; Basophil% 0.9 % (0-1); Eosinophils% 2.9 % (0-5); Hemoglobin 13.8 g/dL (12.0-15.0); Lymphocyte % 31.5 % (19-41); Mean Corp Hgb Conc 32.9 g/dL (32-36); Mean Corpuscular Hgb 31.2 pg (27.0-32.0); Mean Platelet Vol. 10.8 fl (6.2-12.0); Monocyte# 0.84 X10^3/uL; NRBC Flagged by Analyzer 0 % (0-5); Neutrophil # 5.92 X10^3/uL (2.7-7.7); Neutrophil % 56.5 % (47-70); Platelet Count 297 K/mm3 (150-450); RBC Distribution Width CV 12.8 % (11.6-14.6); Red Blood Count 4.42 M/mm3 (4.2-5.4); White Blood Count 10.5 K/mm3 (4.4-11.0)
[2021-05-16 22:38] LABS: AST(SGOT) 57 U/L (15-37); Alanine Aminotransfer ALT/SGPT 69 U/L (13-56); Alkaline Phosphatase 70 U/L (45-117); Anion Gap 6 (5-15); BUN 19 mg/dL (7-18); BUN/Creat Ratio 23.1 RATIO (10-20); Calcium,Total 9.3 mg/dL (8.5-10.1); Chloride 107 mmol/L (98-107); Creatinine, Serum 0.82 mg/dL (0.55-1.02); EST Glomerular Filtration Rate 77 mL/min (>60); Est Glom Filt Rate - Afr Amer 93 mL/min (>60); Globulin 3.9 g/dL (2.2-4.2); Glucose 122 mg/dL (74-106); Potassium 3.8 mmol/L (3.5-5.1); Protein, Total 7.9 g/dL (6.4-8.2); Sodium Level 139 mmol/L (136-145)
== END | disposition home or self-care (01) ==
PROVIDERS: PCP Nurse Practitioner; Visit Provider Nurse Practitioner
DX: M25.562 Pain in left knee (principal)
CPT/HCPCS: 80053; 85025

== ENCOUNTER → 2021-06-14 05:59 | Outpatient (CLI) | payer BC, SELFPAY ==
--- NOTE | 2021-06-14 06:06 | ECHOD_ITS ---
Reason For Study: abnormal EKG Procedure This was a 2D Doppler, Color Flow transthoracic echocardiogram. Bubble study performed. Exam performed in department. Left Ventricle Normal LV size. Left ventricular systolic function is normal. The estimated ejection fraction is 60 %. Transmitral doppler flow suggestive of impaired relaxation of left ventricle. No regional wall motion abnormalities noted. Right Ventricle Normal RV size. Normal systolic function. Atria The left atrium is mildly enlarged. Normal right atrium. No doppler evidence for ASD. Bubble contrast study negative for right to left interatrial shunt. Mitral Valve There is no mitral annular calcification. Normal mitral valve. Trivial mitral valve insufficiency. Tricuspid Valve Normal tricuspid valve. Trivial tricuspid valve insufficiency. Unable to estimate RV systolic pressure/pulmonary artery pressure due to technically difficult study. Aortic Valve Trisinus/trileaflet aortic valve. Normal aortic valve. Pulmonic Valve The pulmonic valve is not well visualized. Great Vessels Normal sized aortic root. Pericardium/Pleural No pericardial effusion. Epicardial fat. Medication 22 gauge I.V. with prn adaptor inserted into right arm. Performed a rapid injection of agitated mix of 9 cc saline and 1cc air to assess for atrial septal defect. MMode/2D Measurements & Calculations LVIDd: 5.2 cm IVSd: 0.96 cm Ao root diam: 3.5 cm LVIDs: 3.5 cm LVPWd: 1.3 cm LA dimension: 3.9 cm FS: 31.9 % LAV(MOD-bp): 61.6 ml LA A4 area: 18.3 cm2 RA A4 area: 14.0 cm2 LAV(MOD-bp) Indexed: 27.6 ml/m2 LAV(MOD-sp2): 68.6 ml LAV(MOD-sp4): 53.7 ml Time Measurements MV dec time: 0.24 sec Doppler Measurements & Calculations MV E max dio: 71.5 cm/sec Lat Peak E' Dio: 9.2 cm/sec Med Peak E' Dio: 7.9 cm/sec MV A max dio: 77.8 cm/sec E/E' lat: 7.7 E/E' med: 9.1 MV E/A: 0.92 MV V2 max: 79.4 cm/sec MV P1/2t max dio: 70.3 cm/sec Ao V2 max: 115.8 cm/sec MV max P.5 mmHg MV P1/2t: 78.3 msec Ao max P.4 mmHg MV V2 mean: 51.4 cm/sec MV dec slope: 263.2 cm/sec2 MV mean P.2 mmHg MV V2 VTI: 23.2 cm MVA(P1/2t): 2.8 cm2 LV V1 max: 105.3 cm/sec PA V2 max: 90.5 cm/sec LV V1 max P.4 mmHg ECHO/Echo Complete Interpretation Summary Left ventricular systolic function is normal. The estimated ejection fraction is 60 %. The left atrium is mildly enlarged. Trivial mitral valve insufficiency. Trivial tricuspid valve insufficiency. Epicardial fat. Unable to estimate RV systolic pressure/pulmonary artery pressure due to techni ruthy difficult study. Transmitral doppler flow suggestive of impaired relaxation of left ventricle Ordering Physician: Beka Llamas Referring Physician: Nika Mays Performed By: Israel Balderas RCS
--- NOTE | 2021-06-14 16:00 | STRESSREP ---
Stress Test Report Date: 06-14-2021 Procedure: Pharmacologic stress nuclear imaging study Indications: Abnormal ECG; PVCs; preoperative cardiovascular evaluation Consent: Per the patient Procedure: The patient underwent pharmacologic (Regadenoson 0.4mg ) evaluation with a peak heart rate of 95 beats per minute (57%predicted maximal heart rate) and a peak blood pressure of 154/76 mmHg. The baseline ECG demonstrated sinus rhythm; nonspecific ST/T wave abnormality. The peak pharmacologic ECG demonstrated no obvious ECG changes. There were no cardiac dysrhythmias pretest, during pharmacologic infusion, or recovery. There was no complaint of chest discomfort during pharmacologic infusion or recovery. The examination was discontinued secondary to completion of protocol. Impression: 1. Pharmacologic (Regadenoson) evaluation 2. Peak pharmacologic ECG with no obvious ECG changes. 3. There were no cardiac dysrhythmias pretest, during pharmacologic infusion, or recovery. 4. Nuclear images pending Myocardial perfusion imaging study: Technique: The patient was injected with 14.6 millicuries of technetium 99m Cardiolite and subsequently rest SPECT Cardiolite nuclear imaging was obtained in the horizontal long, vertical long, and short axis views. The patient underwent pharmacologic (Regadenoson) evaluation with a peak heart rate of 95 beats per minute (57% percent predicted maximal heart rate) and a peak blood pressure of 154/76 mmHg. The patient was injected with 44.2 millicuries of technetium 99m Cardiolite and subsequently stress SPECT Cardiolite nuclear imaging was obtained in the horizontal long, vertical long, and short axis views. A gated Cardiolite study at peak stress was obtained. Interpretation: Rest and stress SPECT Cardiolite nuclear imaging status post realignment, normalization, and attenuation correction demonstrate relative uniform tracer uptake and myocardial perfusion appearing within normal limits. There is end systolic thickening and brightening. The gated Cardiolite study demonstrates myocardial thickening and inward wall motion. The reported LVEF is 63%. Impression: 1. Rest and stress SPECT Cardiolite nuclear imaging demonstrate relative uniform tracer uptake and myocardial perfusion appearing within normal limits. 2. The gated Cardiolite study reports an LVEF of %. This note was generated with [employer] software. It may contain incorrect words, spelling, and punctuation that were not noted in checking the note before signing.
== END ==
PROVIDERS: PCP Nurse Practitioner; Referring Provider Internal Medicine Cardiovascular Disease; Visit Provider Internal Medicine Cardiovascular Disease
DX: Z01.810 Encounter for preprocedural cardiovascular examination (principal); I49.3 Ventricular premature depolarization; I10 Essential (primary) hypertension; R94.31 Abnormal electrocardiogram [ECG] [EKG]
CPT/HCPCS: 78452; 93017; 93306; A9500; A4216; J2785

== ENCOUNTER 2021-10-26 22:22 | Outpatient (CLI) | payer BC, SELFPAY ==
[2021-10-26 22:51] LABS: Absolute Lymphocyte Count 3.28 X10^3/uL (0.83-4.51); Absolute Neutrophil Count 4.6 X10^3/uL (2.0-7.7); Basophil# 0.07 X10^3/uL; Basophil% 0.8 % (0-1); Eosinophil# 0.32 X10^3/uL; Eosinophils% 3.6 % (0-5); Hematocrit 39.9 % (37-47); Hemoglobin 13.5 g/dL (12.0-15.0); Lymphocyte # 3.28 X10^3/ul (0.83-4.51); Lymphocyte % 36.4 % (19-41); Mean Corp Hgb Conc 33.8 g/dL (32-36); Mean Corpuscular Hgb 31.7 pg (27.0-32.0); Mean Corpuscular Volume 93.7 fL (81-99); Mean Platelet Vol. 10.9 fl (6.2-12.0); Monocyte# 0.74 X10^3/uL; Monocyte% 8.2 % (0-10); NRBC Flagged by Analyzer 0 % (0-5); Neutrophil # 4.58 X10^3/uL (2.7-7.7); Neutrophil % 50.8 % (47-70); Platelet Count 241 K/mm3 (150-450); RBC Distribution Width CV 12.7 % (11.6-14.6); Red Blood Count 4.26 M/mm3 (4.2-5.4)
[2021-10-26 23:07] LABS: AST(SGOT) 81 U/L (15-37); Alanine Aminotransfer ALT/SGPT 79 U/L (13-56); Alkaline Phosphatase 77 U/L (45-117); Anion Gap 6 (5-15); BUN 10 mg/dL (7-18); BUN/Creat Ratio 15.3 RATIO (10-20); Calcium,Total 9.4 mg/dL (8.5-10.1); Chloride 106 mmol/L (98-107); Cholesterol 176 mg/dL (200); Creatinine, Serum 0.65 mg/dL (0.55-1.02); EST Glomerular Filtration Rate 100 mL/min (>60); Est Glom Filt Rate - Afr Amer 121 mL/min (>60); Glucose 102 mg/dL (74-106); High Density Lipoprotein 45 mg/dL; Potassium 3.8 mmol/L (3.5-5.1); Sodium Level 140 mmol/L (136-145); Triglycerides 96 mg/dL; Very Low Density Lipoprotein 19 mg/dL (5-40)
[2021-10-26 23:15] LABS: Hemoglobin A1c 6.6 % (3.8-5.6)
== END 2021-10-26 23:59 | disposition short-term general hospital (02) ==
LOC: LABSPEC 22:22
PROVIDERS: PCP Nurse Practitioner; Visit Provider Nurse Practitioner
DX: Z00.00 Encounter for general adult medical examination without abnormal findings (principal)
CPT/HCPCS: 80053; 80061; 83036; 85025

== ENCOUNTER → 2022-08-23 | Outpatient (CLI) | payer BC, SELFPAY ==
--- NOTE | 2022-08-23 10:10 | RAD_ITS ---
STUDY: X-RAY - PELVIS AND BILATERAL HIPS REASON FOR EXAM: Female, 57 years old. Bilateral hip pain. TECHNIQUE: AP view of the pelvis.? 2 views of the right hip, and 2 views of the left hip were obtained. COMPARISON: None. FINDINGS: There is a non-specific bowel gas pattern. Normal visualized soft tissue structures. Mild arthrosis of both SI joints. Normal bilateral superior and inferior pubic rami. Mild arthrosis of the symphysis pubis. Normal bilateral ischial tuberosities. Mild arthrosis of both hips. RAD/Hips B/L min 2 views w/ Pelvis IMPRESSION: Mild arthrosis of both sacroiliac joints, symphysis pubis and both hips. No acute abnormality, evidence of erosive changes/fusion. Electronically Signed: Lionel Gaspar, at 11:18 EST ,
== END | disposition home or self-care (01) ==
LOC: RAD 10:06
PROVIDERS: PCP Nurse Practitioner; Visit Provider Nurse Practitioner
DX: M25.551 Pain in right hip (principal); M25.552 Pain in left hip
CPT/HCPCS: 73521

== ENCOUNTER → 2022-10-22 | Outpatient (CLI) | payer BC, SELFPAY ==
--- NOTE | 2022-10-22 15:30 | MRI_ITS ---
MRI of the lumbar spine INDICATION: Pain radiating to low back and hips COMPARISON: Lumbar spine films September 15, 2020 TECHNIQUE: MRI of the lumbar spine was performed in sagittal and axial projections utilizing T1, T2 and STIR imaging sequences. FINDINGS: There is no evidence for acute fracture or subluxation. There is mild multilevel degenerative endplate changes. Conus medullaris is normal in appearance and terminates at T12 T12-L1: Normal disc space height desiccation and normal morphology only visualized on sagittal images. L1-2: Mildly narrowed disc space with desiccation of the disc and minor annular bulge with small central protrusion. Normal facet joints.. Mild narrowing of the central canal. Normal bilateral lateral recesses and neuroforamina. L2-3: Mildly narrowed disc space with desiccation of the disc and small bilateral foraminal disc protrusions slightly larger on the left mild facet arthropathy. Normal central canal and bilateral lateral recesses. Mild to moderate narrowing of the right nerve root foramen and moderate encroachment on the left. L3-4: Normal disc space height desiccation and normal morphology. Facet arthropathy and thickening of ligamenta flava. Normal central canal bilateral lateral recesses and neuroforamina. L4-5: Normal disc space height with desiccation of the disc and right foraminal disc protrusion. Facet arthropathy and thickening of ligamenta flava slightly worse on the right. Normal central canal and bilateral lateral recesses. Moderate to severe right neural foraminal stenosis L5-S1: Normal disc space height desiccation and small broad-based central disc protrusion mildly encroaching upon both descending S1 nerve roots. Mild narrowing of the central canal. Normal bilateral lateral recesses and neuroforamina.. Facet arthropathy and thickening of ligamenta flava. Comparison with prior studies demonstrate no significant change given differences in imaging modalities MRI/Spine Lumbar (Routine) IMPRESSION: No acute fracture or other significant bony pathology. Multilevel spinal stenosis secondary to disc disease and facet arthropathy. Findings as above Incidental finding of right renal nodules most likely cysts however ultrasound would be helpful for further assessment Electronically Signed: Bashir Mukherjee MD at 17:01 EST Reading Location ID and State: [facility] / [place] , Service support ,
== END | disposition home or self-care (01) ==
PROVIDERS: PCP Nurse Practitioner; Visit Provider Orthopaedic Surgery
DX: M47.26 Other spondylosis with radiculopathy, lumbar region (principal); M46.98 Unspecified inflammatory spondylopathy, sacral and sacrococcygeal region; M51.36 Other intervertebral disc degeneration, lumbar region
CPT/HCPCS: 72148

== ENCOUNTER → 2022-12-12 | Outpatient (CLI) | payer BC, SELFPAY ==
[2022-12-12 21:27] LABS: Absolute Lymphocyte Count 2.78 X10^3/uL (0.83-4.51); Absolute Neutrophil Count 3.5 X10^3/uL (2.0-7.7); Basophil# 0.07 X10^3/uL; Eosinophil# 0.24 X10^3/uL; Eosinophils% 3.4 % (0-5); Hematocrit 41.8 % (37-47); Hemoglobin 14.2 g/dL (12.0-15.0); Lymphocyte # 2.78 X10^3/ul (0.83-4.51); Lymphocyte % 38.8 % (19-41); Mean Corpuscular Volume 94.1 fL (81-99); Mean Platelet Vol. 10.7 fl (6.2-12.0); Monocyte# 0.58 X10^3/uL; Monocyte% 8.1 % (0-10); NRBC Flagged by Analyzer 0 % (0-5); Neutrophil # 3.48 X10^3/uL (2.7-7.7); Neutrophil % 48.6 % (47-70); Platelet Count 256 K/mm3 (150-450); RBC Distribution Width CV 11.7 % (11.6-14.6); RBC Distribution Width SD 40.6 fl (35.1-43.9); Red Blood Count 4.44 M/mm3 (4.2-5.4); White Blood Count 7.2 K/mm3 (4.4-11.0)
[2022-12-12 21:42] LABS: AST(SGOT) 48 U/L (15-37); Alanine Aminotransfer ALT/SGPT 50 U/L (13-56); Albumin, Serum 3.8 g/dL (3.2-5.0); Alkaline Phosphatase 74 U/L (45-117); Anion Gap 7 (5-15); BUN 9 mg/dL (7-18); BUN/Creat Ratio 12.6 RATIO (10-20); Calcium,Total 9.5 mg/dL (8.5-10.1); Chloride 104 mmol/L (98-107); Cholesterol 181 mg/dL (200); Creatinine, Serum 0.72 mg/dL (0.55-1.02); EST Glomerular Filtration Rate 90 mL/min (>60); Est Glom Filt Rate - Afr Amer 108 mL/min (>60); Globulin 3.7 g/dL (2.2-4.2); Glucose 110 mg/dL (74-106); High Density Lipoprotein 45 mg/dL; Potassium 4.1 mmol/L (3.5-5.1); Protein, Total 7.5 g/dL (6.4-8.2); Sodium Level 139 mmol/L (136-145); Triglycerides 118 mg/dL; Very Low Density Lipoprotein 24 mg/dL (5-40)
[2022-12-12 22:01] LABS: Hemoglobin A1c 6.2 % (3.8-5.6)
== END | disposition home or self-care (01) ==
PROVIDERS: PCP Nurse Practitioner; Visit Provider Nurse Practitioner
DX: Z00.00 Encounter for general adult medical examination without abnormal findings (principal)
CPT/HCPCS: 80053; 80061; 83036; 85025

== ENCOUNTER → 2023-01-07 | Outpatient (CLI) | payer BC, SELFPAY ==
--- NOTE | 2023-01-07 09:44 | US_ITS ---
STUDY: RENAL ULTRASOUND - COMPLETE REASON FOR EXAM: Female, 57 years old. R renal nodule TECHNIQUE: Ultrasound evaluation of the kidneys was performed with real-time and static uribe-scale imaging. COMPARISON: Comparison made with prior MRI of the lumbar spine dated April 21, 2023. FINDINGS: RIGHT KIDNEY: Normal location of the right kidney, which is normal in size. The right kidney measures 12.9 cm x 6.6 cm x 4.8 cm. There is a normal cortex of the right kidney. The renal cortex measures 1.8 cm. There is no right renal mass or cyst. There are no right renal calculi. There is no right hydronephrosis. DISTAL RIGHT URETER: There is non-visualization of the distal right ureter. There is no demonstrated right ureterovesical junction calculus. There is a visualized right ureteral jet. LEFT KIDNEY: Normal location of the left kidney, which is normal in size. The left kidney measures 12 cm x 6.7 cm x 6.9 cm. There is a normal cortex of the left kidney. The renal cortex measures 2.3 cm. There is evidence of a 3.6 cm x 4 cm x 3.1 cm left renal cyst. There are no left renal calculi. There is no left hydronephrosis. DISTAL LEFT URETER: There is non-visualization of the distal left ureter. There is no demonstrated left ureterovesical junction calculus. There is a visualized left ureteral jet. BLADDER: The distended urinary bladder has a volume of 359 ml. There is a normal wall thickness of the distended urinary bladder. There is no demonstrated mass within the urinary bladder. There are no demonstrated bladder calculi. US/Kidney and Bladder IMPRESSION: Left renal cyst measuring 3.6 x 4 cm x 3.1 cm. Electronically Signed: Vidal Chavez MD at 15:07 EDT ,
== END | disposition home or self-care (01) ==
LOC: US 09:42
PROVIDERS: PCP Nurse Practitioner; Visit Provider Nurse Practitioner
DX: N28.89 Other specified disorders of kidney and ureter (principal)
CPT/HCPCS: 76770

== ENCOUNTER → 2023-06-13 | Outpatient (CLI) | payer BC, SELFPAY ==
[2023-06-13 22:12] LABS: AST(SGOT) 45 U/L (15-37); Alanine Aminotransfer ALT/SGPT 69 U/L (13-56); Albumin, Serum 3.8 g/dL (3.2-5.0); Alkaline Phosphatase 78 U/L (45-117); Anion Gap 6 (5-15); BUN 23 mg/dL (7-18); BUN/Creat Ratio 20.9 RATIO (10-20); Calcium,Total 9.4 mg/dL (8.5-10.1); Chloride 104 mmol/L (98-107); EST Glomerular Filtration Rate 54 mL/min (>60); Est Glom Filt Rate - Afr Amer 66 mL/min (>60); Glucose 175 mg/dL (74-106); Potassium 3.8 mmol/L (3.5-5.1); Protein, Total 7.8 g/dL (6.4-8.2); Sodium Level 136 mmol/L (136-145)
[2023-06-13 22:13] LABS: Hemoglobin A1c 6.9 % (3.8-5.6)
== END | disposition home or self-care (01) ==
PROVIDERS: PCP Nurse Practitioner; Visit Provider Nurse Practitioner
DX: E11.65 Type 2 diabetes mellitus with hyperglycemia (principal); R63.5 Abnormal weight gain; R60.9 Edema, unspecified; I10 Essential (primary) hypertension
CPT/HCPCS: 80053; 83036

== ENCOUNTER → 2023-07-23 | Outpatient (CLI) | payer BC, SELFPAY ==
--- NOTE | 2023-07-23 08:44 | NM_ITS ---
CLINICAL: 58-year-old female with suspected skeletal metastatic disease. WHOLE BODY 99m Tc MDP RADIONUCLIDE BONE SCINTIGRAPHY COMPARISON: None available FINDINGS: Following the intravenous administration of 27.7 mCi of 99m Tc MDP, whole body bone images reveal: 1. Increased radiopharmaceutical concentration is defined in the mid cervical spine posteriorly on the right, the third thoracic vertebra posteriorly on the right, the second fourth and fifth lumbar vertebra, the patellofemoral compartments of both knees, the right ankle, the acromioclavicular, glenohumeral of both shoulders and sternoclavicular compartment of the right shoulder, posterior inferior acetabulum of the left hip. 2. The remaining skeletal structures are scintigraphically unremarkable with normal-appearing renal images and urinary bladder activity identified. Enhanced uptake is noted in the greater trochanteric aspect of the right proximal femur most consistent with periostitis and/or trochanteric bursitis. There is visualized bilateral frontal hyperostosis. NM/Bone Scan Whole Body IMPRESSION: 1. The increase in radiopharmaceutical distribution defined in the cervical, thoracic and lumbar spine, bilateral knees, the right ankle, the shoulders bilaterally and left hip is most consistent with degenerative arthrosis. Plain film radiography correlation may be of benefit in the region of the bilateral knee articulations. 2. There is no definitive typical scintigraphic evidence of diffuse skeletal metastatic disease. Electronically Signed: Oscar Allison DO at 22:53 EDT ,
== END | disposition home or self-care (01) ==
LOC: NM 08:43
PROVIDERS: PCP Nurse Practitioner; Referring Provider Orthopaedic Surgery; Visit Provider Orthopaedic Surgery
DX: M25.551 Pain in right hip (principal); M46.89 Other specified inflammatory spondylopathies, multiple sites in spine; M25.552 Pain in left hip; M51.36 Other intervertebral disc degeneration, lumbar region
CPT/HCPCS: 78306; A9503

== ENCOUNTER → 2023-08-05 | Outpatient (CLI) | payer BC, SELFPAY ==
[2023-08-05 21:58] LABS: Absolute Lymphocyte Count 3.96 X10^3/uL (0.83-4.51); Basophil# 0.07 X10^3/uL; Basophil% 0.9 % (0-1); Eosinophil# 0.44 X10^3/uL; Eosinophils% 5.5 % (0-5); Hematocrit 36.7 % (37-47); Hemoglobin 12.2 g/dL (12.0-15.0); Lymphocyte # 3.96 X10^3/ul (0.83-4.51); Lymphocyte % 49.2 % (19-41); Mean Corp Hgb Conc 33.2 g/dL (32-36); Mean Corpuscular Hgb 32.8 pg (27.0-32.0); Mean Corpuscular Volume 98.7 fL (81-99); Mean Platelet Vol. 10.5 fl (6.2-12.0); Monocyte# 0.59 X10^3/uL; Monocyte% 7.3 % (0-10); NRBC Flagged by Analyzer 0 % (0-5); Neutrophil # 2.98 X10^3/uL (2.7-7.7); Platelet Count 262 K/mm3 (150-450); RBC Distribution Width SD 46.5 fl (35.1-43.9); Red Blood Count 3.72 M/mm3 (4.2-5.4); White Blood Count 8.1 K/mm3 (4.4-11.0)
[2023-08-05 22:29] LABS: ALB/GLOB Ratio 1.1 RATIO (0.9-2.4); AST(SGOT) 30 U/L (15-37); Alanine Aminotransfer ALT/SGPT 47 U/L (13-56); Albumin, Serum 3.8 g/dL (3.2-5.0); Alkaline Phosphatase 51 U/L (45-117); Anion Gap 5 (5-15); BUN 37 mg/dL (7-18); Calcium,Total 8.9 mg/dL (8.5-10.1); Chloride 107 mmol/L (98-107); Creatinine, Serum 1.37 mg/dL (0.55-1.02); EST Glomerular Filtration Rate 42 mL/min (>60); Est Glom Filt Rate - Afr Amer 51 mL/min (>60); Globulin 3.6 g/dL (2.2-4.2); Glucose 103 mg/dL (74-106); Potassium 3.7 mmol/L (3.5-5.1); Protein, Total 7.4 g/dL (6.4-8.2); Sodium Level 135 mmol/L (136-145); Thyroid Stim Hormone (TSH) 2.12 uIU/mL (0.358-3.74)
== END | disposition home or self-care (01) ==
PROVIDERS: PCP Nurse Practitioner; Visit Provider Nurse Practitioner
DX: I95.9 Hypotension, unspecified (principal); E11.65 Type 2 diabetes mellitus with hyperglycemia; I10 Essential (primary) hypertension
CPT/HCPCS: 80053; 84443; 85025

== ENCOUNTER → 2023-08-14 | Outpatient (CLI) | payer BC, SELFPAY ==
--- NOTE | 2023-08-14 06:41 | MRI_ITS ---
HISTORY: pain. TECHNIQUE: Multiplanar and multisequence MR images of the thoracic spine were obtained without intravenous contrast. 169 images. COMPARISON: None. FINDINGS: VERTEBRAE: Vertebral body heights maintained. Mild degenerative endplate changes with Schmorl''s nodes at multiple levels. No other significant bone marrow signal abnormality. ALIGNMENT: No significant anterior or posterior subluxation. CORD: Thoracic cord within normal limits in signal and morphology. Normal morphology and position of the conus medullaris at T12-L1. INTERVERTEBRAL DISCS: C7-T1: Mild posterior disc protrusion without significant central canal stenosis or foraminal narrowing. T1-2, T2-3: No significant posterior disc protrusion, central canal stenosis, or foraminal narrowing. T3-4: Right facet arthropathy resulting in mild right foraminal narrowing. T4-5, T5-6: No significant posterior disc protrusion, central canal stenosis, or foraminal narrowing. T6-7, T7-8: Mild right paracentral disc protrusions abutting the ventral cord without significant central canal stenosis or foraminal narrowing. T8-9, T9-10: No significant posterior disc protrusion, central canal stenosis, or foraminal narrowing. T10-11: Mild posterior disc protrusion with facet arthropathy. No significant central canal stenosis or foraminal narrowing. T11-12, T12-L1: No significant posterior disc protrusion, central canal stenosis, or foraminal narrowing. L1-2: Posterior disc bulge osteophyte complex with facet arthropathy resulting in mild central canal stenosis and left foraminal narrowing based on the sagittal images. SOFT TISSUES: Mild posterior subcutaneous edema over the lower thoracic spine. No paraspinal fluid collection. Bilateral renal cysts. MRI/Spine Thoracic (Routine) IMPRESSION: Mild degenerative disc disease of the thoracic spine as above. Electronically Signed: Yudy Ortiz MD at 13:47 EST ,
== END | disposition home or self-care (01) ==
LOC: MRI 06:09
PROVIDERS: PCP Nurse Practitioner; Referring Provider Orthopaedic Surgery; Visit Provider Orthopaedic Surgery
DX: G95.0 Syringomyelia and syringobulbia (principal)
CPT/HCPCS: 72146

== ENCOUNTER → 2024-03-16 | Outpatient (CLI) | payer BC, SELFPAY ==
--- NOTE | 2024-03-16 07:20 | RAD_ITS ---
INDICATION: HIP PAIN BILATERAL HIP PAIN, LEFT MORE THAN RIGHT NKI EXAMINATION/TECHNIQUE: X-RAY - XR Hips Bilateral with Pelvis when performed; 2 Views COMPARISON: Pelvis and bilateral hip x-rays 07/04/2023 FINDINGS: No fracture demonstrated. Femoral heads are normal in contour. No dislocation at the hips. There is irregularity at the greater trochanter on the right femur, unchanged from prior study, question prior trauma or possibly related to tendinitis. 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 RAD/Hips B/L min 2 views w/ Pelvis IMPRESSION: No evidence of fracture. Mild degenerative changes of the hips. Irregularity at the greater trochanter right femur not significantly changed possible tendinitis or related to prior trauma. Electronically Signed: Vanesa Shoemaker MD at 8:04 EDT ,
== END | disposition home or self-care (01) ==
LOC: RAD 07:19
PROVIDERS: PCP Nurse Practitioner; Referring Provider Clinical Nurse Specialist Adult Health; Visit Provider Clinical Nurse Specialist Adult Health
DX: M25.551 Pain in right hip (principal); M25.552 Pain in left hip
CPT/HCPCS: 73521

== ENCOUNTER → 2024-11-12 | Outpatient (CLI) | payer BC, SELFPAY ==
[2024-11-12 23:14] LABS: AST(SGOT) 27 U/L (15-37); Alanine Aminotransfer ALT/SGPT 46 U/L (13-56); Albumin, Serum 3.8 g/dL (3.2-5.0); Alkaline Phosphatase 79 U/L (45-117); Anion Gap 7 (5-15); BUN 15 mg/dL (7-18); BUN/Creat Ratio 20.2 RATIO (10-20); Calcium,Total 9.2 mg/dL (8.5-10.1); Chloride 107 mmol/L (98-107); Cholesterol 186 mg/dL (200); Creatinine, Serum 0.74 mg/dL (0.55-1.02); EST Glomerular Filtration Rate 85 mL/min (>60); Est Glom Filt Rate - Afr Amer 103 mL/min (>60); Globulin 3.7 g/dL (2.2-4.2); Glucose 102 mg/dL (74-106); High Density Lipoprotein 47 mg/dL; Potassium 3.8 mmol/L (3.5-5.1); Protein, Total 7.5 g/dL (6.4-8.2); Sodium Level 139 mmol/L (136-145); Triglycerides 162 mg/dL; Very Low Density Lipoprotein 32 mg/dL (5-40)
[2024-11-12 23:17] LABS: Hemoglobin A1c 4.8 % (3.8-5.6)
== END | disposition home or self-care (01) ==
PROVIDERS: PCP Nurse Practitioner; Referring Provider Nurse Practitioner; Visit Provider Nurse Practitioner
DX: Z00.00 Encounter for general adult medical examination without abnormal findings (principal)
CPT/HCPCS: 80053; 80061; 83036